=== PATIENT | male | born 2000 | race Caucasian/White ===

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

== ENCOUNTER 2022-03-13 10:13 | Emergency (ER) | payer OTHER ==
[2022-03-13] MEDS ORDERED: ACETAMINOPHEN TAB 325 MG TAB PO STA (11:16)
--- NOTE | 2022-03-13 11:19 | ED ---
URI HPI - General Chief Complaint: Upper Respiratory Infection Stated Complaint: Sore throat, cold symptoms Time Seen by Provider: 03/13/22 11:11 Source: patient, RN notes reviewed, old records reviewed Mode of arrival: ambulatory Limitations: no limitations - History of Present Illness Initial Comments: 21-year-old well-appearing male presents to the emergency room with complaints of 1 week of cough and nasal congestion with sinus headache. Patient denies any fevers. He is a half a pack a day smoker. Denies any sick contacts. MD Complaint: cough, rhinorrhea, nasal congestion, sinus pain -: week(s) (1) Severity scale (1-10): 7 Consistency: constant Improves With: nothing Associated Symptoms: headache Treatments Prior to Arrival: none - Related Data Allergies Allergy/AdvReac Type Severity Reaction Status Date / Time No Known Allergies Allergy Verified 03/13/22 10:32 Review of Systems ROS Statement: Those systems with pertinent positive or pertinent negative responses have been documented in the HPI. ROS Other: All systems not noted in ROS Statement are negative. Past Medical History Past Medical History: No Reported History History of Any Multi-Drug Resistant Organisms: None Reported Past Surgical History: No Surgical Hx Reported Past Psychological History: Bipolar Smoking Status: Current every day smoker Past Alcohol Use History: Occasional Past Drug Use History: None Reported General Exam Limitations: no limitations General appearance: alert, in no apparent distress Head exam: Present: atraumatic Eye exam: Present: normal appearance. Absent: scleral icterus, conjunctival injection, periorbital swelling, periorbital tenderness ENT exam: Present: mucous membranes moist Expanded Mouth exam: Present: normal external inspection, tongue normal, tongue elevation. Absent: drooling, trismus, muffled voice Throat exam: negative: tonsillar erythema, tonsillar exudate, R peritonsillar mass, L peritonsillar mass Neck exam: Absent: meningismus Respiratory exam: Present: normal lung sounds bilaterally. Absent: respiratory distress, wheezes, rales, rhonchi, stridor, chest wall tenderness, accessory muscle use Cardiovascular Exam: Present: regular rate GI/Abdominal exam: Present: soft. Absent: tenderness, rigid Neurological exam: Present: alert, oriented X3, normal gait Psychiatric exam: Present: normal affect, normal mood Skin exam: Present: warm, dry, normal color. Absent: cyanosis, diaphoretic, pallor Course Vital Signs 03/13/22 03/13/22 10:30 13:15 Temperature 98.6 F 98.2 F Pulse Rate 91 92 Respiratory 20 18 Rate Blood Pressure 126/77 129/86 O2 Sat by Pulse 99 99 Oximetry Medical Decision Making - Medical Decision Making Patient offered testing for coronavirus, and influenza and declined Discussion was held regarding smoking cessation and its negative impact on health. Chest x-ray negative Antibiotics were considered however no evidence of pneumonia. Vital signs are stable. Lung sounds are clear. This is likely a viral illness. Patient agreeable to discharge. Case discussed with Dr. Moncada Disposition Clinical Impression: Upper respiratory tract infection Disposition: HOME SELF-CARE Condition: Good Instructions (If sedation given, give patient instructions): Upper Respiratory Infection (ED) Additional Instructions: Increase your fluid intake. Take vitamin C, vitamin D and zinc daily. Tylenol and or Motrin as needed for any pain or discomfort. [id number] nasal decongestant may help. Decreased smoking as this will lengthen the duration of your illness and create chronic medical problems in the future. Is patient prescribed a controlled substance at d/c from ED?: No Referrals: None,Stated [Primary Care Provider] - 1-2 days Time of Disposition: 12:47
--- NOTE | 2022-03-13 12:23 | XR ---
EXAMINATION TYPE: XR chest 2V DATE OF EXAM: 03/13/2022 12:02 PM COMPARISON: None TECHNIQUE: XR chest 2V Portable AP radiograph of the chest. CLINICAL INDICATION:Male, 21 years old with history of cough 1 week; FINDINGS: Lungs/Pleura: There is no evidence of pleural effusion, focal consolidation, or pneumothorax. Pulmonary vascularity: Unremarkable. Heart/mediastinum: Cardiomediastinal silhouette is unremarkable. Musculoskeletal: No acute osseous pathology. IMPRESSION: No acute cardiopulmonary disease/process.
[2022-03-13 13:18] VITALS: BP 129/86; PULSE 92; RESP 18; TEMP 98.2
== END 2022-03-13 13:18 | disposition home or self-care (01) ==
LOC: EC 10:13
DX: J06.9 Acute upper respiratory infection, unspecified (principal); F31.9 Bipolar disorder, unspecified; F17.200 Nicotine dependence, unspecified, uncomplicated
CPT/HCPCS: 71046; 99284

== ENCOUNTER 2022-09-04 22:08 | Emergency (ER) | payer OTHER ==
[2022-09-04] MEDS ORDERED: KETOROLAC 15 MG/ML 1 ML VIAL IVP STA (22:23)
[2022-09-04] MEDS ORDERED: SODIUM CHLORIDE 0.9% 1,000 ML IV ONE (22:23)
[2022-09-04 22:50] LABS: Basophils % (A) 1 %; Eosinophils # (A) 0.4 k/uL (0-0.7); Eosinophils % (A) 5 %; HCT 43.7 % (39.0-53.0); HGB 15.5 gm/dL (13.0-17.5); Lymphocytes % (A) 27 %; MCHC 35.4 g/dL (31.0-37.0); Mean Platelet Volume 7.2; Monocytes # (A) 0.5 k/uL (0-1.0); Monocytes % (A) 6 %; Neutrophils # (A) 4.4 k/uL (1.3-7.7); Neutrophils % (A) 59 %; Platelet Count 288 k/uL (150-450); RBC 4.55 m/uL (4.30-5.90); RDW 14.7 % (11.5-15.5); WBC 7.4 k/uL (4.0-11.0)
[2022-09-04 23:08] LABS: ALT 24 U/L (4-49); AST 26 U/L (17-59); African American GFR (CKD) >90 (>60 ml/min/1.73 sqM); Albumin 4.5 g/dL (3.5-5.0); Alkaline Phosphatase 58 U/L (38-126); Anion Gap 10 mmol/L; Blood Urea Nitrogen 22 mg/dL (9-20); Calcium 9.6 mg/dL (8.4-10.2); Carbon Dioxide 25 mmol/L (22-30); Chloride 102 mmol/L (98-107); Glucose 104 mg/dL (74-99); Magnesium 1.9 mg/dL (1.6-2.3); Non-African American GFR(CKD) >90 (>60 ml/min/1.73 sqM); Potassium 4.2 mmol/L (3.5-5.1); Sodium 137 mmol/L (137-145); Total Bilirubin 2.1 mg/dL (0.2-1.3); Total Protein 7.6 g/dL (6.3-8.2)
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
[2022-09-05 00:02] VITALS: BP 131/78; PULSE 99; RESP 18; TEMP 97.9
== END 2022-09-05 00:02 | disposition home or self-care (01) ==
LOC: EC 22:08
DX: S00.81XA Abrasion of other part of head, initial encounter (principal); R00.0 Tachycardia, unspecified; F17.200 Nicotine dependence, unspecified, uncomplicated; V43.52XA Car driver injured in collision with other type car in traffic accident, initial encounter; Y92.410 Unspecified street and highway as the place of occurrence of the external cause
CPT/HCPCS: 36415; 80053; 83735; 85025; 99284; 96374; 96361; J1885

== ENCOUNTER 2022-10-14 13:40 | Emergency (ER) | payer OTHER ==
[2022-10-14 14:12] VITALS: RESP 18
[2022-10-14] MEDS ORDERED: SODIUM CHLORIDE 0.9% 1,000 ML IV STA (14:52)
[2022-10-14] MEDS ORDERED: LORazepam 2 MG/ML INJ IV STA (15:13)
[2022-10-14 15:35] LABS: Partial Thromboplastin Time 23.8 sec (22.0-30.0); Prothrombin Time 10.5 sec (9.0-12.0)
[2022-10-14 15:44] LABS: Basophils % (A) 0 %; Eosinophils # (A) 0.3 k/uL (0-0.7); Eosinophils % (A) 3 %; HCT 45.8 % (39.0-53.0); HGB 16.4 gm/dL (13.0-17.5); Lymphocytes % (A) 26 %; MCHC 35.8 g/dL (31.0-37.0); MCV 97.8 fL (80.0-100.0); Mean Platelet Volume 7.4; Monocytes # (A) 0.6 k/uL (0-1.0); Monocytes % (A) 8 %; Neutrophils # (A) 4.6 k/uL (1.3-7.7); Neutrophils % (A) 60 %; Platelet Count 223 k/uL (150-450); RBC 4.68 m/uL (4.30-5.90); RDW 14.1 % (11.5-15.5); WBC 7.7 k/uL (4.0-11.0)
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
[2022-10-14 16:25] LABS: ALT 22 U/L (4-49); AST 22 U/L (17-59); African American GFR (CKD) >90 (>60 ml/min/1.73 sqM); Albumin 4.8 g/dL (3.5-5.0); Alkaline Phosphatase 52 U/L (38-126); Anion Gap 9 mmol/L; Blood Urea Nitrogen 20 mg/dL (9-20); Calcium 9.4 mg/dL (8.4-10.2); Carbon Dioxide 28 mmol/L (22-30); Chloride 100 mmol/L (98-107); Glucose 98 mg/dL (74-99); Non-African American GFR(CKD) >90 (>60 ml/min/1.73 sqM); Potassium 4.2 mmol/L (3.5-5.1); Sodium 137 mmol/L (137-145); Total Bilirubin 2.2 mg/dL (0.2-1.3); Total Protein 8.3 g/dL (6.3-8.2)
[2022-10-14 18:24] VITALS: BP 122/84; PULSE 101; TEMP 98.1
== END 2022-10-14 18:24 | disposition other institution (70) ==
LOC: EC 13:40
DX: S14.109A Unspecified injury at unspecified level of cervical spinal cord, initial encounter (principal); F17.200 Nicotine dependence, unspecified, uncomplicated; Z86.59 Personal history of other mental and behavioral disorders; Z20.822 Contact with and (suspected) exposure to COVID-19; V43.52XA Car driver injured in collision with other type car in traffic accident, initial encounter; Y92.410 Unspecified street and highway as the place of occurrence of the external cause
CPT/HCPCS: 36415; 86900; 86901; 80053; 85025; 85610; 85730; 86850; 87635; 99284; 96374; 96361 ×3; J2060

== ENCOUNTER → 2022-10-14 | Outpatient (CLI) | payer OTHER ==
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
== END | disposition home or self-care (01) ==
LOC: RADMRIMAIN 11:02
PROVIDERS: ATTEND Family Medicine
DX: S06.0XAA Concussion with loss of consciousness status unknown, initial encounter (principal); J35.1 Hypertrophy of tonsils; M54.12 Radiculopathy, cervical region; R20.0 Anesthesia of skin; R51.9 Headache, unspecified; X58.XXXA Exposure to other specified factors, initial encounter
CPT/HCPCS: 70553; 72156; A9585

== ENCOUNTER 2023-08-18 18:46 | Emergency (ER) | payer OTHER ==
[2023-08-18 18:57] VITALS: RESP 18; TEMP 99.4
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
[2023-08-18] MEDS: ONDANSETRON 4 MG/2 ML VIAL IVP STA (19:25)
[2023-08-18] MEDS: MORPHINE SULFATE 4 MG/ML SYRINGE IV STA ×2 (19:28→22:04)
--- NOTE | 2023-08-18 21:23 | XR ---
EXAMINATION TYPE: XR tibia fibula LT DATE OF EXAM: 08/18/2023 7:41 PM CLINICAL INDICATION:Male, 23 years old with history of fall injury; [facility] COMPARISON: TECHNIQUE: 4 views left tibia/fibula, 3 views left ankle. FINDINGS: Mineralization appears appropriate. There is acute oblique fracture of the distal fibular shaft which extends from above the level of the ankle mortise, to the mortise. There is mild displacement, with the proximal fragment displaced slightly anterior and medial in relation to the distal fragment. Ankl e mortise appears preserved. Talar dome is intact. Medial and posterior malleoli appear intact on the se views. There is a moderate amount of soft tissue swelling regional to the fracture, likely contusion hematom a. No radiopaque foreign body is seen. No additional fracture of the more proximal tibia or fibula is identified. IMPRESSION: Acute fracture of the distal left fibular shaft with mild displacement.
--- NOTE | 2023-08-18 21:28 | XR ---
EXAMINATION TYPE: XR ankle complete LT DATE OF EXAM: 08/18/2023 7:41 PM CLINICAL INDICATION:Male, 23 years old with history of fall injury; [facility] COMPARISON: TECHNIQUE: 4 views left tibia/fibula, 3 views left ankle. FINDINGS: Mineralization appears appropriate. There is acute oblique fracture of the distal fibular shaft which extends from above the level of the ankle mortise, to the mortise. There is mild displacement, with the proximal fragment displaced slightly anterior and medial in relation to the distal fragment. Ankl e mortise appears preserved. Talar dome is intact. Medial and posterior malleoli appear intact on the se views. There is a moderate amount of soft tissue swelling regional to the fracture, likely contusion hematom a. No radiopaque foreign body is seen. No additional fracture of the more proximal tibia or fibula is identified. IMPRESSION: Acute fracture of the distal left fibular shaft with mild displacement.
[2023-08-18 21:57] VITALS: BP 129/83; PULSE 88
== END 2023-08-18 22:10 | disposition home or self-care (01) ==
LOC: EC 18:46
DX: S82.832A Other fracture of upper and lower end of left fibula, initial encounter for closed fracture (principal); F17.200 Nicotine dependence, unspecified, uncomplicated; X50.1XXA Overexertion from prolonged static or awkward postures, initial encounter
CPT/HCPCS: 73590; 73610; 99283; 96374; 96375; 96376; 29515; J2270; J2405

== ENCOUNTER 2024-06-29 10:05 | Emergency (ER) | payer OTHER ==
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
[2024-06-29] MEDS: KETOROLAC 15 MG/ML 1 ML VIAL IM STA (10:53)
[2024-06-29] MEDS: LIDOCAINE 4% PATCH TOPICAL ONE (10:54)
[2024-06-29] MEDS: HYDROcodone/APAP 5-325MG 1 EACH TAB PO STA (10:54)
[2024-06-29] MEDS: methocarbamoL 500 MG TAB PO STA (10:55)
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
[2024-06-29] MEDS: ACET/COD 300 MG/30 MG STARTER PACK 6 TAB BTL PO STA (11:39)
[2024-06-29 11:44] VITALS: BP 138/76; PULSE 70; RESP 16; TEMP 98.2
== END 2024-06-29 11:45 | disposition home or self-care (01) ==
LOC: EC 10:05
DX: S20.212A Contusion of left front wall of thorax, initial encounter (principal); F17.290 Nicotine dependence, other tobacco product, uncomplicated; Z91.013 Allergy to seafood; V89.2XXA Person injured in unspecified motor-vehicle accident, traffic, initial encounter; Y92.410 Unspecified street and highway as the place of occurrence of the external cause
CPT/HCPCS: 71101; 99285; 96372; J1885